=== PATIENT | male | born 1985 | race African-American/Black ===

== ENCOUNTER 2017-09-10 13:46 | Emergency (ER) | payer OTHER ==
[~2017-09-10] VITALS: Ht 188 cm; Wt 138.3 kg
[2017-09-10 13:46] VITALS: BP_SYST 134
[2017-09-10] MEDS ORDERED: DIPH-TET-PERTUS Vaccine 0.5 ML VIAL (ADACEL) I.M. ONE (14:45)
[2017-09-10 15:15] VITALS: BP_SYST 128
== END 2017-09-10 15:15 | disposition home or self-care (01) ==
LOC: SED 13:46
DX: S11.94XA Puncture wound with foreign body of unspecified part of neck, initial encounter (principal); R03.0 Elevated blood-pressure reading, without diagnosis of hypertension; W34.010A Accidental discharge of airgun, initial encounter; Y93.89 Activity, other specified; Y92.89 Other specified places as the place of occurrence of the external cause; Y99.8 Other external cause status
CPT/HCPCS: 70360-TC; 90715; 99284